=== PATIENT | female | born 1975 | race Caucasian/White ===

== ENCOUNTER 2016-11-26 10:51 | Observation (INO) | payer SELFPAY ==
--- NOTE | ~2016-11-26 | HP ---
History And Physical [facility] [address] [place]. [address] NAME: JESSEE FLETCHER : 71 STATUS : ADM Sandra PAT#: [id number] AGE: 41 ADM/REG DATE : 11/26/16 MR#: [id number] REPORT SERV DATE: 11/26/16 DICTATED BY: KARINA BAIRD DATE: 11/26/16 REPORT STATUS : Draft TRANSCRIBED BY: MODKaila DATE: 11/26/16 DATE OF ADMISSION: 11/26/2016 CHIEF COMPLAINT: Chest pain and palpitations. HISTORY OF PRESENT ILLNESS: This is a very pleasant 41-year-old Nigerien lady, who lives in [place] but is here in the [facility] short-term as a resident learning at the [facility]. She presents with a two-three year history of which she calls "heart pain." Her ak chin language is Nigerien, but she is fluent in [place]ym[place]. She states she first noticed chest pain approximately two-three years ago when she was undergoing a lot of stress at her job. She never underwent any testing at that time. In August, she learned of her mother's diagnosis of pancreatic cancer and noticed that her "heart started hurting" again. Her mother a month later of pancreatic cancer. Over the last two weeks, these symptoms seemed to have intensified along with feeling like her legs are becoming more swollen. She states the chest pains are mostly on the left side under the left breast feeling "like my heart is running like crazy." These symptoms can last for hours and she feels it more often at night. She has also noticed more shortness of breath when going up and down stairs. Denies any orthopnea or PND. She describes the chest pains as feeling like something is pushing on her chest and sometimes it radiates to her back and left arm. She was brought by a friend to our emergency department this morning around 10:30 and was given some IV fluid as well as sublingual nitroglycerin, which seemed to ease her pain. She is currently chest pain free. The patient denies any personal history for WI, CVA, PE or DVT. She takes no medications at this time. Denies history of diabetes or high cholesterol. MEDICAL HISTORY: The patient does admit to some anxiety. SURGICAL HISTORY: None. HOME MEDICATIONS: None. ALLERGIES: NO KNOWN DRUG ALLERGIES. SOCIAL HISTORY: The patient is single. 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 She is wanting to become a medical missionary and currently at an recruitment internship at the [employer]. She is a member of [employer]. She has never smoked. Denies alcohol or illicit drug use. She is a vegan. FAMILY HISTORY: Negative for premature cardiovascular disease among her first-degree relatives. She does report that some of her maternal aunts and uncles have had heart disease and her maternal grandfather in his 50s of a heart attack. REVIEW OF SYSTEMS: Negative except as indicated above. History And Physical [address] [address] NAME: JESSEE FLETCHER : 71 STATUS : ADM Sandra PAT#: [id number] AGE: 41 ADM/REG DATE : 11/26/16 MR#: [id number] REPORT SERV DATE: 11/26/16 DICTATED BY: KARINA BAIRD DATE: 11/26/16 REPORT STATUS : Draft TRANSCRIBED BY: DEJA DATE: 11/26/16 PHYSICAL EXAMINATION: VITAL SIGNS: Blood pressure 131/72, heart rate 55, temperature 98.6, respirations 16. GENERAL: Well developed, well nourished, in no acute distress. HEENT: Anicteric. Normal EOM. Head normocephalic. PERRLA, no xanthelasma. NECK: Supple. No JVD. Carotids normal without bruits. LUNGS: Clear to auscultation bilaterally anterior and posterior. Respirations even and unlabored. CARDIAC: S1, S2 regular rate and rhythm. No murmurs, rubs, or gallops. No chest wall tenderness. ABDOMEN: Normal bowel sounds. Soft and nontender to palpation. No masses or organomegaly. EXTREMITIES: No peripheral edema. DP/PT and radial pulses palpable bilaterally. No clubbing or cyanosis. SKIN: Warm and dry. Normal turgor. No pallor or cyanosis. MUSCULOSKELETAL: Moving all extremities x4. Normal muscle strength. NEURO/PSYCH: Alert and oriented with appropriate affect. LABORATORY DATA: Sodium 141, potassium 3.8, BUN 8, creatinine 0.6. White blood count 6.7, hemoglobin 12.7, hematocrit 36.5. Troponin less than 0.02. BNP 100.1. D-dimer 0.42. Chest x-ray shows no acute cardiopulmonary processes. EKG interpreted by myself indicates sinus bradycardia with no ischemia. ASSESSMENT/PLAN: 1. Atypical chest pain in this 41-year-old female with no specific cardiovascular risk factors. Her initial troponin is negative as well as her EKG. We have admitted her to our chest pain observation unit. We will plan to check another troponin and EKG. If these remain unchanged, recommend pursuing a stress echocardiogram in the morning to further differentiate any ischemic etiology to her chest pain. 2. Palpitations. Plan to check a TSH and we will monitor her rhythm on telemetry overnight. Currently sinus bradycardia on EKG. 3. Reported edema. This is not appreciated on exam. The patient states this comes more at the end of the day and she is on her feet a lot. I advised her to try to decrease salt intake, as [place] diet is higher in sodium. 4. Anxiety. Encouraged the patient to pursue exercise for anxiety management. 5. Dyspnea on exertion. BNP is very slightly elevated at 100.1. No fluid overload appreciated on exam or on chest x-ray. Plan stress echocardiogram as above. DBT/MODL Karina Baird NP / [id number] CC: Karina Baird NP
[2016-11-26 11:45] LABS: BASOPHILS 0.4 %; BASOPHILS ABSOLUTE 0.03 10/3/uL (0.0-0.16); EOSINOPHILS 1.8 %; EOSINOPHILS ABSOLUTE 0.12 10/3/uL (0.0-0.53); HEMATOCRIT 36.5 % (36.0-48.0); HEMOGLOBIN 12.7 g/dL (12.0-16.0); IMMATURE GRANULOCYTES 0.1 %; IMMATURE GRANULOCYTES ABSOLUTE 0.01 10/3/uL (0.0-0.11); LYMPHOCYTES 39.9 %; LYMPHOCYTES ABSOLUTE 2.69 10/3/uL (0.67-4.30); MEAN CORPUS HGB CONC 34.8 g/dL (32.0-36.0); MEAN CORPUSCULAR HEMOGLOB 30.6 pg (26.0-34.0); MONOCYTES ABSOLUTE 0.47 10/3/uL (0.21-1.20); NEUTROPHILS 50.8 %; NEUTROPHILS ABSOLUTE 3.42 10/3/uL (2.02-8.40); PLATELET COUNT 262 10/3/uL (150-400); RBC DISTRIBUTION WIDTH 12.9 % (12.0-16.0); RED CELL COUNT 4.15 10/6/uL (4.0-5.6); WHITE BLOOD CELLS 6.7 10/3/uL (4.5-10.5)
[2016-11-26 11:49] LABS: MANUAL DIFF NO %
[2016-11-26 11:53] LABS: INTERNATIONAL NORMAL RATI 1.1 UNITS (-); PROTIME (NOT ORD) 13.9 SEC (12.0-14.5)
[2016-11-26 11:56] LABS: D-DIMER QUANTITATIVE 0.42 ug/mLFEU (< 0.50)
[2016-11-26 12:00] LABS: BUN (BLOOD UREA NITROGEN) 8 MG/DL (6-23); CALCIUM, SERUM 8.9 MG/DL (8.5-10.4); CHEST PAIN PROFILE TAT 0 Hrs 19 Mins; CHLORIDE, SERUM 106 MMOL/L (96-112); CO2 (CARBON DIOXIDE) 31 MMOL/L (24-34); CREATININE 0.66 MG/DL (0.55-1.02); GFR AFRICAN AMERICAN 125 ML/MIN (>=60); GFR NON AFRICAN AMERICAN 108 ML/MIN (>=60); GLUCOSE, SERUM 89 MG/DL (60-99); POTASSIUM, SERUM 3.8 MMOL/L (3.5-5.3); SODIUM, SERUM 141 MMOL/L (135-148); TROPONIN I <0.02 NG/ML (<0.05)
[2016-11-26] MEDS ORDERED: *DENIES (13:33)
[2016-11-26 18:10] LABS: TROPONIN I <0.02 NG/ML (<0.05)
== END 2016-11-27 12:34 | disposition home or self-care (01) ==
LOC: ER 10:51 → CDU1 13:27 → CDU2 13:36
PROVIDERS: Emergency Medicine; Nurse Practitioner
DX: R07.89 Other chest pain (principal); I25.2 Old myocardial infarction; Z86.73 Personal history of transient ischemic attack (TIA), and cerebral infarction without residual deficits; F41.9 Anxiety disorder, unspecified; R00.2 Palpitations
CPT/HCPCS: 71010; 80048; 83735; 83880; 84436; 84443; 84484; 85025; 85379; 85610; 85730; 93005; 93017; 93350; 99285; A9270-GY; G0378